=== PATIENT | male | born 1980 | race African-American/Black ===

== ENCOUNTER 2020-08-05 10:13 | Emergency (ER) | payer OTHER ==
[~2020-08-05] VITALS: Ht 172.7 cm; Wt 98.4 kg
[2020-08-05 11:50] LABS: ABSOLUTE NEUTROPHILS 4.3 thou/uL (1.4-8.2); BASOPHILS 0.4 % (0.0-2.0); EOSINOPHILS 1.2 % (0.0-3.0); HEMATOCRIT 45.5 % (42.0-52.0); HEMOGLOBIN 15.5 gm/dL (14.0-18.0); LYMPHOCYTES 28.3 % (24.0-44.0); MCH 31.7 pg (26.0-34.0); MCV 93.2 fL (80.0-100.0); MONOCYTES 6.7 % (1.0-8.0); PLATELET COUNT 199 thou/uL (150-400); POLYS 63.4 % (36.0-66.0); RBC 4.88 mil/uL (4.50-6.00); RDW 14.9 % (10.5-14.5); WBC 6.8 thou/uL (4.0-11.0)
[2020-08-05 12:08] LABS: ANION GAP 9 mmol/L (7-16); BUN 13 mg/dL (7-18); CALCIUM 9.8 mg/dL (8.5-10.1); CHLORIDE 102 mmol/L (98-107); CO2 29 mmol/L (21-32); GLUCOSE 89 mg/dL (74-106); POTASSIUM 3.7 mmol/L (3.5-5.1); SODIUM 140 mmol/L (136-145)
[2020-08-05 12:17] LABS: ALBUMIN 3.8 g/dL (3.4-5.0); SGOT 14 U/L (15-37); SGPT 24 U/L (16-63); TOTAL BILIRUBIN 0.9 mg/dL (0.2-1.0); TOTAL PROTEIN 7.6 g/dL (6.4-8.2); TROPONIN-I <0.06 ng/mL (<0.06)
[2020-08-05] MEDS ORDERED: OMEPRAZOLE40 MG PO (12:29)
[2020-08-05] MEDS ORDERED: CARAFATE 1 GM TA1 G1 PO (12:29)
[2020-08-05 13:15] VITALS: BP 147/94
--- NOTE | 2020-08-05 16:01 | EKG ---
[address] [address] ELECTROCARDIOGRAM REPORT Name: JOSE PERAZA Room #: DEP BOO Acuña#: [id number] Admission: 08/05/20 Attend Phys: Discharge: 08/05/20 Date of : 84 Report #: [id number] [facility] ED Test Date: 2020-08-05 Test Time: 10:19:10 Pat Name: JOSE PERAZA Department: Room: Gender: Manager Field: : 1980 Requested By: Sherman Suero Order Number: [id number] MD: Nicko Lara Measurements Intervals [place] Rate: 67 P: 38 TX: 174 QRS: 41 QRSD: 95 T: 34 QT: 397 QTc: 419 Interpretive Statements Sinus rhythm Probable left ventricular hypertrophy No previous ECG available for comparison Electronically Signed On 08-05-2020 16:01:19 CDT by Nicko Lara [email or web address] <ELECTRONICALLY SIGNED> By: Nicko Lara MD, [facility] 08/05/20 1601 [id number] [id number] Nicko Lara MD, FACC /EPI
== END 2020-08-05 13:15 | disposition home or self-care (01) ==
LOC: ER 10:13
PROVIDERS: Physician Assistant
DX: R07.89 Other chest pain (principal); K21.9 Gastro-esophageal reflux disease without esophagitis; Z88.0 Allergy status to penicillin

== ENCOUNTER 2020-08-23 13:17 | Emergency (ER) | payer OTHER ==
[~2020-08-23] VITALS: Ht 172.7 cm; Wt 93.9 kg
[~2020-08-23 13:17] MED LIST: CARAFATE 1 GM TA1 G1 PO; OMEPRAZOLE40 MG PO
[2020-08-23 13:31] LABS: URINE BILIRUBIN NEGATIVE (Negative); URINE BLOOD 3+ (Negative); URINE CLARITY CLEAR; URINE COLOR YELLOW; URINE GLUCOSE-RANDOM* NEGATIVE (Negative); URINE KETONES NEGATIVE (Negative); URINE LEUKOCYTES-REFLEX NEGATIVE (Negative); URINE NITRITE-REFLEX NEGATIVE (Negative); URINE PROTEIN (DIPSTICK) NEGATIVE (Negative); URINE SPECIFIC GRAVITY >= 1.030 (1.005-1.035)
[2020-08-23 13:40] LABS: BACTERIA-REFLEX 1-9 Few /HPF (None Seen); CASTS None Seen /LPF (None Seen); CRYSTALS None Seen /LPF (None Seen); SQUAMOUS 0-3 Few /LPF (0-3); URINE RBC 3-10 Few /HPF (NONE SEEN); URINE WBC-REFLEX 0-5 Rare /HPF (0-5)
[2020-08-23 14:07] LABS: ABSOLUTE NEUTROPHILS 2.2 thou/uL (1.4-8.2); BASOPHILS 0.3 % (0.0-2.0); EOSINOPHILS 2.5 % (0.0-3.0); HEMATOCRIT 44.2 % (42.0-52.0); HEMOGLOBIN 14.6 gm/dL (14.0-18.0); LYMPHOCYTES 41.3 % (24.0-44.0); MCH 30.9 pg (26.0-34.0); MCHC 33.2 g/dL (28.0-37.0); MCV 93.1 fL (80.0-100.0); MONOCYTES 10.3 % (1.0-8.0); POLYS 45.6 % (36.0-66.0); RBC 4.74 mil/uL (4.50-6.00); RDW 14.4 % (10.5-14.5); WBC 4.8 thou/uL (4.0-11.0)
[2020-08-23 14:12] LABS: CREATININE 1.1 mg/dL (0.7-1.3); POTASSIUM 3.8 mmol/L (3.5-5.1)
[2020-08-23 14:19] LABS: ALBUMIN 3.6 g/dL (3.4-5.0); TOTAL BILIRUBIN 0.7 mg/dL (0.2-1.0); TOTAL PROTEIN 7.2 g/dL (6.4-8.2)
[2020-08-23 14:27] LABS: PLATELET COUNT 264 thou/uL (150-400)
[2020-08-23 14:28] LABS: LARGE PLATELETS FEW; PLATELET ESTIMATE NORMAL
[2020-08-23] MEDS ORDERED: PEPCID20 MG PO (14:44)
[2020-08-23 14:55] VITALS: BP 152/88
== END 2020-08-23 15:00 | disposition home or self-care (01) ==
LOC: ER 13:17
PROVIDERS: Emergency Medicine
DX: K29.70 Gastritis, unspecified, without bleeding (principal); Z79.899 Other long term (current) drug therapy; Z88.0 Allergy status to penicillin